=== PATIENT | female | born 1960 | race Caucasian/White ===

== ENCOUNTER 2021-10-24 18:38 | Emergency (ER) | payer BC, SELFPAY ==
[2021-10-24 18:44] VITALS: BP 140/79; PULSE 63; RESP 18; O2SAT 97; BMI 20.2
--- NOTE | 2021-10-24 18:59 | CRLHL7_ITS ---
For Patients: As a result of the Century Cures Act, medical imaging exams and procedure reports are released immediately into your electronic medical record. You may view this report before your referring provider. If you have questions, please contact your health care provider. INDICATION: Leg pain and swelling. TECHNIQUE: Ultrasound venous duplex lower left extremity. Compression venous exam was performed using small-scale, color Doppler, and spectral Doppler analysis. COMPARISON: None. FINDINGS: Deep veins: Sonographic imaging demonstrates the left common femoral, deep femoral, superficial femoral, popliteal, posterior tibial and the contralateral right common femoral veins to be fully compressible with normal color Doppler blood flow. Superficial veins: Greater saphenous vein is fully compressible. No popliteal cyst. IMPRESSION: Normal left lower extremity venous ultrasound, no sign of deep venous thrombosis. Dictated by Marshall Trejo MD @ 10/24/2021 7:53:23 PM (Electronically Signed)
--- NOTE | 2021-10-24 19:00 | ED.LOWEXIN ---
HPI - Extremity Injury (Lower) General Chief Complaint: Extremity Pain/Injury, Lower Stated Complaint: L leg pain and bruise Time Seen by Provider: 10/24/21 18:41 History of Present Illness HPI Narrative: This 61-year-old female comes in because of a bruise on the left lateral lower extremity just below the knee joint. This happened earlier today. There is a bruise that is noted to be about 5 cm in diameter. She is concerned about a possible blood clot in the deep veins. She does not have any unilateral leg swelling or tenderness in any other part of the leg. She does not have a history of blood clots. She is not on any blood thinners. She does not report any chest pain or shortness of breath. Related Data Allergies Allergy/AdvReac Type Severity Reaction Status Date / Time No Known Drug Allergies Allergy Verified 10/24/21 18:43 Review of Systems Status of ROS: Reports: 10 or more systems reviewed and unremarkable except as noted in History and below Narrative: Constitutional: No fevers, no weight gain or loss. Eyes: No discharge. No vision changes. HENT: No congestion, no sore throat, no ear pain. Cardiovascular: No chest pain, no palpitations. Respiratory: No shortness of breath, no wheezes, no cough. Gastrointestinal: No abdominal pain, no vomiting, no diarrhea. Genitourinary: No dysuria, no hematuria. Musculoskeletal: Normal range of motion. Bruise on the left lower extremity as described above. Skin: No rashes, no pruritis. Neurological: No dizziness, weakness, sensory change, speech change. Endo/Heme/Allergies: No bruising or bleeding. No polydipsia. Pysch: no suicidality, no anxiety, no insomnia. All other systems reviewed and are negative. [facility] Social History Smoking Status: Current every day smoker What tobacco products do you use: cigarettes Smoking packs per day: 0.25 Smoking cigarettes per day: 5.0 Years smoked: 40 Smoking pack-years: 10.00 Do you use any of these nicotine containing products: None Second hand tobacco smoke exposure: No How often do you have a drink containing alcohol: 2-3 times a week How many standard drinks containing alcohol do you have on a typical day: 1 or 2 How often do you have six or more drinks on one occasion: Never AUDIT-C Alcohol total score: 3 Non-prescribed substance use: denies use service: No Exam Narrative: Exam Narrative: Constitutional: Well-developed, well-nourished, no acute distress. HEENT: Normocephalic, atraumatic. Neck: Normal range of motion. Nontender. Supple. Heart: Intact distal pulses. Lungs: No chest discomfort. No wheezes, rhonchi, or rales. Abdomen: Nontender. Back: Normal range of motion. Extremities: Normal range of motion. Bruising with very mild swelling on the left lateral lower extremity just below the knee joint and measuring approximately 5 cm in diameter. There is no tenderness when palpating in the area a above her below her knee joint. There is no unilateral limb swelling. Skin: Intact. No rash. Warm. No erythema or pallor. Neurologic: No altered sensation. No weakness. Alert and oriented. Psychiatric: No suicidality. No anxiety or depression. No insomnia. Nursing notes and vitals signs are reviewed. Const: Vital Signs, click to edit/add: Vital Signs - 24 hr 10/24/21 18:44 Pulse Rate [Pulse Oximeter] 63 Respiratory Rate 18 Blood Pressure [Le ft Upper Arm] 140/79 H Pulse Oximetry 97 Oxygen Delivery Me thod Room Air Course Vital Signs Vital signs: Initial Vital Signs Temperature Source Temporal Artery Scan 10/24/21 18:44 Pulse Rate 63 10/24/21 18:44 Pulse Rhythm 10/24/21 18:44 Respiratory Rate 18 10/24/21 18:44 Blood Pressure 140/79 H 10/24/21 18:44 Blood Pressure Mean 99 10/24/21 18:44 Pulse Oximetry 97 10/24/21 18:44 Oxygen Delivery Method 10/24/21 18:44 Vital Signs Pulse Rate 63 10/24/21 18:44 Respiratory Rate 18 10/24/21 18:44 Blood Pressure 140/79 H 10/24/21 18:44 Pulse Oximetry 97 10/24/21 18:44 Oxygen Delivery Method 10/24/21 18:44 Pulse Rate 63 10/24/21 18:44 Respiratory Rate 18 10/24/21 18:44 Blood Pressure 140/79 H 10/24/21 18:44 Pulse Oximetry 97 10/24/21 18:44 Oxygen Delivery Method 10/24/21 18:44 MDM - Extremity Injury (Lower) MDM Narrative Medical decision making narrative: This 61-year-old female comes in with concern about a bruise on her leg and wonders if this might be evidence of a blood clot. She is not showing any signs of unilateral leg swelling or pain. She does have a bruise that is superficial on the left lateral aspect by the knee joint. An ultrasound of the left lower extremity shows no evidence thrombosis. This is reassuring to the patient who is able to return home to continue current plans. Imaging Data US L lower extremity: My impression: No sign of deep venous thrombosis. Discharge Plan Discharge Clinical Impression: Contusion of left leg Patient Disposition: Home, Self-Care Condition: Stable Additional Instructions: Use [id number] medicines as needed and directed. Follow up with MD or return if worsening. Follow Up/Referrals: Provider,Not a Local [Primary Care Provider] - Stand Alone Forms: [employer] Info Instructions
== END 2021-10-24 20:35 | disposition home or self-care (01) ==
PROVIDERS: Emergency Provider Emergency Medicine Emergency Medical Services
DX: S80.12XA Contusion of left lower leg, initial encounter (principal)
CPT/HCPCS: 93971; 99283; 99284

== ENCOUNTER 2023-06-29 07:01 | Outpatient (CLI) | payer BC, SELFPAY ==
--- NOTE | 2023-06-29 07:15 | MR_ITS ---
[address] [address] Phone:?[phone] Fax:?[phone] Referring Physician Information: Benito Zacarias M.D. [id number] [facility] [address] Phone:?[phone] Fax:?[phone] Patient:Olga Craven D.O.B:?1960 Sex:?Female Phone:?[phone] [facility] MRN:?[id number] Exam Date:?06/29/2023 EXAM: MRI of the RIGHT SHOULDER, without contrast CLINICAL INFORMATION: Female, 62 years old, with right shoulder pain. INDICATION: Evaluate for rotator cuff tear. PRIOR SURGERY: None reported. PLAIN FILMS: None available. COMPARISONS: No prior MRIs available. TECHNICAL INFORMATION: Using a 1.5T MR scanner and a localizing surface coil: coronal obliques: PD, T2, STIR sagittal obliques: PD, T2 axials: PD, T2 SEDATION: None CONTRAST: None FINDINGS: Bones: Proximal humerus: No fracture or marrow edema/pathology. No humeral Hill-Sachs or reverse Hill-Sachs lesion/impaction or contusion. Glenoid: No fracture or marrow edema/pathology. No osseous Bankart lesion. Rotator cuff and muscles/tendons: Supraspinatus: Full width, full-thickness tear of supraspinatus, tendon retraction to the mid humeral head and grade 2 muscle atrophy. Infraspinatus: Mild infraspinatus tendinopathy, without tendon tear or muscle atrophy. Teres minor: No tendinopathy, tear or atrophy. Subscapularis: Mild tendinopathy of the superior distal subscapularis, without tendon tear or muscle atrophy. Deltoid: No strain or atrophy. Coracoacromial arch: Acromion morphology: The acromion has type II morphology. No discrete subacromial osseous spur or os acromiale. Acromiohumeral space: The acromiohumeral space measures 5.5 mm at its narrowest point (osseous distance). Coracohumeral space: The coracohumeral space is within normal limits. Acromioclavicular joint: Joint: Mild AC joint arthropathy, without significant inferior osteophytosis or evidence of supraspinatus impingement. Ligaments: Coracoclavicular ligaments are intact. Bursae: Subacromial-subdeltoid: Moderate subacromial-subdeltoid bursal fluid/bursitis. Subcoracoid: No convincing subcoracoid bursal thickening/bursitis. Biceps tendon: Nonvisualization of the intra-articular biceps long head tendon, which appears torn and retracted approximately 5 cm down the humerus (sagittal T2 series 8 image 7) Glenohumeral joint: Effusion/cyst: Small glenohumeral joint effusion. Articular cartilage: Humeral head: No osteochondral abnormalities. Glenoid: No osteochondral abnormalities. Loose bodies: No discrete intra-articular body within the joint. Labrum:?No discrete labral tear or paralabral cyst identified on this non- arthrographic study. Inferior glenohumeral ligament/axillary pouch:?Intact. The axillary pouch is normal in thickness and signal. No evidence of adhesive capsulitis or capsular injury. IMPRESSION: 1. Full-width, full-thickness tear of supraspinatus, tendon retraction to the mid humeral head and grade 2 muscle atrophy. 2. Full-thickness avulsion/disruption of the biceps long head tendon, which appears retracted approximately 5 cm down the humerus. 3. Mild infraspinatus & subscapularis tendinopathy, without tear. 4. Mild narrowing of the acromiohumeral space with moderate subacromial- subdeltoid bursal fluid/bursitis. While there is mild AC joint arthropathy, there is no evidence of impingement at the AC joint. 5. No labral tear or paralabral cyst. 6. No full-thickness chondral defect or evidence of glenohumeral joint osteoarthritis. BC Electronically signed on 06/29/2023 12:24:00 PM by Power Scott M.D.
== END 2023-06-29 07:02 | disposition home or self-care (01) ==
LOC: MRI 07:02
PROVIDERS: PCP Family Medicine; Visit Provider Orthopaedic Surgery
DX: M25.511 Pain in right shoulder (principal); M75.101 Unspecified rotator cuff tear or rupture of right shoulder, not specified as traumatic; M75.51 Bursitis of right shoulder
CPT/HCPCS: 73221

== ENCOUNTER 2023-08-06 08:24 | Day surgery (SDC) | payer BC, SELFPAY ==
[2023-08-06] VITALS (16 sets, daily range): BP systolic 99–133; BP diastolic 44–83; PULSE 45–62; RESP 12–16; TEMP 36.1–36.7; O2SAT 92–99; BMI 20.4
[2023-08-06] MEDS: ACETAMINOPHEN 500 MG TABLET 1000 MG PO (08:45)
[2023-08-06] MEDS: OXYCODONE (CR) 10 MG TAB.ER.12H PO (08:45)
[2023-08-06] MEDS: CELECOXIB 200 MG CAPSULE PO (08:45)
[2023-08-06] MEDS: LACTATED RINGERS 1000 ML 1,000 ML 100 ML IV ×2 (08:50→10:44)
[2023-08-06] MEDS: SODIUM CHLORIDE 0.9 % (FLUSH) 10 ML SYRINGE IVF (08:50)
[2023-08-06] MEDS: MIDAZOLAM HCL 1 MG/ML inj IVP (09:37)
[2023-08-06] MEDS: fentaNYL 100 MCG/2 ML inj IVP (09:37)
--- NOTE | 2023-08-06 09:53 | SUR.PREOP ---
TIME?OUT:?0937 PT/Ines SMITH RN/BRODY VICENTE?VERIFICATION?OF?SURGICAL?SITE,?PROCEDURE,?AND?CONSENT OBTAINED?PRIOR?TO?INVASIVE?PROCEDURE.
--- NOTE | 2023-08-06 10:36 | P.NB_ITS ---
Nerve Block Nerve Block Time Seen by Provider: 07:00 Date Seen: 08/06/23 Type of block requested by surgeon for post-operative analgesia: interscalene Side: right Time out performed: Yes Verification of patient name: Yes Verification of date of : Yes Site marking: site marked Name of person performing procedure: eloy Continuous monitoring Was continuous monitoring of O2 sat, B/P, property assessment monitor, recorded every 15 minutes?: Yes Procedure Checklist: sterile prep, needles and gloves Ultrasound guided. Images saved: Yes Medications given in 5ml increments after negative aspiration: Ropivicaine %: 0.5 mL: 20 Needle gauge: 22 Decadron (mg): 10 Precedex (mcg): 25 Patient tolerated procedure well: Yes Additional comments: Injected in 5ml increments after negative aspiration Block Charges Block Charge (with Pro Fee): Brachial Plexus Use of Ultrasound Machine for Block: Yes- US Guidance/pain block
[2023-08-06] MEDS: CEFAZOLIN 2 GM INJ IVP (10:43)
[2023-08-06] MEDS: EPINEPHrine 1 MG in SODIUM CHLORIDE IRRIG SOLUTION 3,000 ML 3001 MG IRRIGATION ×4 (10:56→11:35)
--- NOTE | 2023-08-06 11:04 | SUR.OPER ---
PATIENT QUESTIONS ANSWERED SATISFACTORILY PREOPERATIVELY. PATIENT BROUGHT TO OR #2 PER CART FOLLOWING THE BLOCK. Patient positioned supine on OR #2 bed for the intubation.? Perioperative team wrapped the left arm in a neutral position on the pt. abdomen with the drawsheet. Right arm elevated on an IV pole in a padded strap. Final approval of positioning by surgeon. CONTINUOUS IRRIGATION OF THE LEFT SHOULDER WITH MIXTURE OF 3000 NACL AND 1mg OF EPINEPHRINE DURING PROCEDURE.
--- NOTE | 2023-08-06 12:01 | P.ORPRC_ITS ---
Procedure Note Date of procedure: 08/06/23 Procedure: PREOPERATIVE DIAGNOSIS: Right shoulder rotator cuff tear, AC joint arthrosis, long head of the biceps tear, labral tearing POSTOPERATIVE DIAGNOSIS: Right shoulder rotator cuff tear, AC joint arthrosis, long head of the biceps tear, labral tearing NAME OF OPERATION: Right shoulder arthroscopic limited glenohumeral joint debridement, subacromial decompression, distal clavicle excision, mini open rotator cuff repair, biceps tenodesis SURGEON: Benito Zacarias MD WATER SERVER: Mary Quach PA-C ANESTHESIA: Supraclavicular block plus general endotracheal ESTIMATED BLOOD LOSS: 5 mL COMPLICATIONS: None SPECIMENS: None DRAINS: None PREOPERATIVE ANTIBIOTICS: Ancef 1 g INDICATIONS: The patient is a 62-year-old with a history of right shoulder pain secondary to the above diagnoses. Despite appropriate non operative management, they continue to have symptoms. Operative intervention was recommended. The risks, benefits and expected outcomes were discussed in detail. These included but were not limited to: Infection, bleeding, injury to blood vessel or nerve, venous thromboembolism. All questions were answered to their satisfaction. PROCEDURE: A supraclavicular block was placed by Anesthesia. General anesthesia was administered. The patient was placed in the high beach chair position. The right shoulder was prepped and draped in the usual sterile fashion. The glenohumeral joint was infiltrated with 20 mL of normal saline with epinephrine. The posterior portal was established, the arthroscope was introduced. The anterior portal was established, Diagnostic arthroscopy was performed with findings as follows: The biceps is torn and retracted out of the glenohumeral joint. The anterior, posterior and superior labrum show age- appropriate degenerative tearing. Articular surface on the humeral head is normal, there is a focal area of grade 3 private branch exchange service advisor the inferior aspect of the central glenoid. There are no loose bodies. There is a full-thickness tear of the supraspinatus. The labrum was debrided with a shaver. Likewise, the unstable articular cartilage flaps on the glenoid were debrided with the shaver to a stable base. The arthroscope was placed in the subacromial space, the lateral portal was established. The Arthrex Mellen was used to dissect the acromion free. The CA ligament was recessed off the anterior acromion, the AC joint was exposed. The acromioplasty was performed with the bur in the posterior portal. The bur was then placed in the lateral portal and the lateral and anterior aspect of the acromion were resected. The undersurface of the distal clavicle was resected through the lateral portal. Finally, the bur was placed in the anterior portal and the remainder of the distal clavicle was resected for a total of 10 mm. An accessory anterolateral portal was placed. The subacromial/subdeltoid bursa was aggressively debrided. There is a full-thickness tear of the supraspinatus, into the infraspinatus. The rotator cuff is quite thinned out and poor quality tissue. Arthroscopic instruments were removed. The accessory anterolateral portal was extended proximally and distally, subcutaneous dissection was taken with electrocautery to the deltoid. The deltoid was divided in line with its fibers. The static retractor was placed. The subacromial/subdeltoid bursa was debrided with the Hardy scissors. The greater tuberosity was debrided to punctate bleeding bone using the Lempert rongeur. Two Arthrex BioComposite SwiveLock anchors were placed just off the articular surface. Both limbs of the FiberWire and fiber tape were passed using the scorpion. A fiber link was placed in the leading edge of the rotator cuff x2. We tied the 2 central FiberWire sutures over the rotator cuff. We then proceeded with a lateral row of SwiveLock anchors x 2 crossing the FiberTape and incorporating the FiberWire and fiber link into each lateral row anchor. A Giovana was placed in the bicipital groove. We were able to deliver the biceps into the wound. It was tenodesed to the local soft tissues with a # 2 FiberWire x2. This provides a good repair of the rotator cuff. The wound was irrigated with normal saline off the pump. The deltoid was repaired with an 0 Vicryl in an interrupted [id number] fashion. Subcutaneous tissues were closed with a 3- 0 Vicryl. Skin was closed with a 3-0 Monocryl in a subcuticular fashion. A dry dressing and sling were applied. Sponge and needle counts were correct x2. The patient tolerated the procedure well. There were no apparent complications. They were carefully transferred to the hospital bed and taken to the postanesthesia care unit in satisfactory condition. PLAN: The patient will be discharged to home. No active range of motion of the shoulder will be allowed for 6 weeks postoperatively. She will use the sling, with an abduction pillow given the poor quality of the cuff. They can work on active range of motion of the elbow, wrist and fingers. They will follow up in the office next week for a wound check and an AP and transscapular Y-view of the shoulder prior to being seen.
--- NOTE | 2023-08-06 12:26 | W.ANESCHARGE ---
Anesthesia Charges Start Date/Time Anesthesia Start Date: 08/06/23 Anesthesia Start Time: 10:09 Stop Date/Time Anesthesia Stop Date: 08/06/23 Anesthesia Stop Time: 12:27
--- NOTE | 2023-08-06 12:37 | SUR.PHASEI ---
Patient meets PACU Anesthesia discharge criteria
== END 2023-08-06 14:17 | disposition home or self-care (01) ==
LOC: OR 08:25
PROVIDERS: Visit Provider Orthopaedic Surgery
PROC: (CPT 23412; principal; 2023-08-06 10:15)
DX: M75.101 Unspecified rotator cuff tear or rupture of right shoulder, not specified as traumatic (principal); M19.011 Primary osteoarthritis, right shoulder; S46.111A Strain of muscle, fascia and tendon of long head of biceps, right arm, initial encounter; S43.431A Superior glenoid labrum lesion of right shoulder, initial encounter; G89.18 Other acute postprocedural pain; M65.331 Trigger finger, right middle finger; M65.841 Other synovitis and tenosynovitis, right hand
CPT/HCPCS: 29826; 29824; 29822; 23430; 23412; 26055; 01630; 64415; 76942; A9270; C1713; J0171; J0330; J0690; J1100; J2250; J2405; J2704; J2710; J2795; J3010; J7120; L3670

== ENCOUNTER 2023-10-28 13:00 | Outpatient (RCR) | payer BC, SELFPAY ==
--- NOTE | 2023-10-27 14:06 | PT.OPDNX ---
[facility] Daily Note PT [facility] Daily Note Start: 08/10/23 08:00 Freq: Status: Active Protocol: Document 10/27/23 08:19 KERRI (Rec: 10/27/23 09:35 KERRI [id number]) E-signed By Earlene Barrera, PT PT OP Daily Progress Note Visit Information Note Type Daily Note Visit Number [id number] Insurance Information Insurance Information/Comments 52 V/YEAR; 0 AT TIME OF EVAL Medical Diagnosis RIGHT SHOULDER : S/P MINI RTC REPAIR (SUPRA), SAD, DCE BICEPS TENODESIS 08/06/23 SUPRASPINATUS TEAR BICEPS TEAR LABRAL TEAR S/P RIGHT RTC REPAIR W/DCE, SAD, BICEPS TENODESIS 08/06/23 Treating Diagnosis RIGHT SHOULDER PAIN Referring MD KNOWLES Subjective Preferred Name MARIANA Subjective PATIENT RETURNS TODAY HAVING BEEN OUT OF THE CLINIC FOR 20DAYS D/T VACATION AND SCHEDULING CHALLENGES. SHE REPORTS THAT HER SHORT TERM DISABILITY IS ENDING AND SHE MUST RETURN TO WORK THIS THURSDAY OR NOT HAVE A JOB. SHE WILL SEE THE ORTHO TOMORROW BUT HAS PREEMPTIVELY CANCELED HER REMAINING VISITS. WE DISCUSSED LEAVING THEM IN PLACE IN THE EVENT SHE DOES NOT RETURN TO WORK OTHERWISE SHE MAY NOT BE ABLE TO GET BACK ON THE SCHEDULE AGAIN FOR SEVERAL WEEKS. SHE EXPRESSES A MODERATE AMOUNT OF EXACERBATION AND WILL KEEP HER PLAN OF RETURNING TO WORK INSTRUCTED. Pain Comments -04/25 Date of Last Physician Visit 09/16/23 Date of Next Physician Visit 10/28/23 Date of Surgery (If applicable) 08/06/23 Precautions Treatment Precautions/Contraindications 08/10/23: NO AROM FOR 6 WEEKS, ABD PILLOW W/SLING 6 WEEKS 09/15/23: REMOVED ABD PILLOW AND PROGRESS PER MASSIVE RTC REPAIR PROTOCOL INSTRUCTED. Weight Bearing Status Non-Weight Bearing Objective Other/Pertinent Objective 10/27/11: STDG AROM 96/72/36/L3 SUPINE AROM 138/98/78 10/01/23: SUPINE 142/90/66 (@45 ; AROM 68/68/28 (@0), LATERAL GLUT 09/29/23: SUPINE PROM 138/98/48 @45 08/10/23: SUPINE PROM 90/82/15 Assessment/Impression Assessment/Impression MARIANA IS POD83 AND HAVING BEEN PERFORMING HER HEP DILIGENTLY OVER THE PAST 20DAYS NOT MAKING IT INTO THE CLINIC. PROGRESSED HER RTC/SCAPULAR STRENGTHENING AND STRETCHING PROGRAM ALONG WITH UPDATED HER ENTIRE HEP TO REFLECT HER CURRENT PROGRESSION. PATIENT DEMONSTRATES CAPSULAR ENDFEEL IN FLEX, ABD, AND INSTRUCTED TO PERFORM HER STRETCHES THROUGHOUT THE DAY USING HER BODY FOR LEVERAGING ON WALL, TABLE TOP, OR COUNTER TOP AND HOLDING FOR 30-45 SEC EA. HER MEASUREMENTS ARE CURRENTLY 12/09: STDG AROM 96/72/36/L3; SUPINE AROM 138/98/74/32. PATIENT WOULD GREATLY BENEFIT FROM CONTINUED SKILLED PHYSICAL THERAPY BUT UNLIKELY ABLE TO RETURN D/T RETURNING TO WORK THIS WEEK. SHE IS PROVIDED A PRINTED COPY OF HER HEP WITH EDUCATION ON HOW TO PROGRESSION AND WHEN TO REVERT BACK TO TABLE OR PREVIOUS/ DRAG CAR RACER RESISTANCE. PATIENT VERBALIZED UNDERSTANDING AND PROVIDED CONTACT INFORMATION FOR QUESTIONS SHOULD SHE NEED CLARIFICATION. THIS WILL SERVE A DISCHARGE SHOULD SHE NOT RETURN TO THE CLINIC. I WILL KEEP HER CHART OPEN FOR ONE MONTH. Plan of Care Physical Therapy Goals 1. DECREASE PAIN TO </3/10 WITH DAILY ACTIVITIES AND WITH PROGRESSION OF PHYSICAL THERAPY OVER THE NEXT 6-8 WEEKS. 2. IMPROVE R SHOULDER PROM TO WFL WITHIN 4-6 WEEKS TO PREPARE FOR RETURN TO FUNCTIONAL USE. 3. IMPROVE AROM TO WFL TO RETURN TO FUNCTIONAL USE OF RIGHT SHOULDER FOR DAILY ACTIVITIES/WORK/RECREATIONAL ACTIVITIES IN THE NEXT 8-10 WEEKS. 4. IMPROVE R SHOULDER STRENGTH TO WFL IN THE NEXT 10-12 WEEKS FOR RETURN TO FULL FUNCTIONAL USE OF RIGHT SHOULDER/UE FOR DAILY ACTIVITIES/ WORK/RECREATIONAL ACTIVITIES. 5. PATIENT WILL DEMONSTRATE INDEPENDENCE WITH HIS HEP WITHING 12-16 WEEKS FOR PROGRESSION OF THE ABOVE GOALS , ONGOING SELF MGMT OF ANY SYMPTOMS, ONGOING PROGRESS/ IMPROVEMENTS IN ROM/STRENGTH/ FUNCTION FOR RETURN TO FULL FUNCTIONAL USE OF RUE Daily Plan of Care Comments UNCLEAR WHETHER SHE WILL RETURN. WILL AWAIT FURTHER INSTRUCTIONS.
== END 2023-12-28 13:18 | disposition home or self-care (01) ==
PROVIDERS: Visit Provider Orthopaedic Surgery
DX: Z98.890 Other specified postprocedural states (principal); R53.1 Weakness; Z51.89 Encounter for other specified aftercare; M25.641 Stiffness of right hand, not elsewhere classified; M25.511 Pain in right shoulder
CPT/HCPCS: 97035; 97110; 97140; 97162; 97165; X5282